=== PATIENT | female | born 1965 | race Caucasian/White ===

== ENCOUNTER 2018-08-22 02:09 | Emergency (ER) | payer OTHER ==
[~2018-08-22] VITALS: Ht 154.9 cm; Wt 70.3 kg
[2018-08-22 02:20] VITALS: Ht 154.9 cm; Wt 70.3 kg
[2018-08-22 02:50] LABS: CALCIUM 9.1 mg/dL (8.5-10.1); CARBON DIOXIDE 26.1 mmol/L (21-32); CHLORIDE SERUM 108 mmol/L (98-107); CREATININE SERUM 0.7 mg/dL (0.6-1.0); GFR1 > 60 mL/min; GLUCOSE SERUM 103 mg/dL (74-106); POTASSIUM SERUM 3.6 mmol/L (3.5-5.1); SODIUM SERUM 143 mmol/L (136-145)
[2018-08-22 02:53] LABS: BASOPHIL % 0.2 % (0-2); PLATELET COUNT 270 x10^3mcL (130-400); RED CELL DISTRIBUTION WIDTH 14.4 % (11.5-14.5)
[2018-08-22 02:55] LABS: ALBUMIN 3.3 g/dL (3.4-5.0); ALKALINE PHOSPHATASE 72 U/L (46-116); ALT/SGPT 78 U/L (14-59); AST/SGOT 40 U/L (15-37); BILIRUBIN TOTAL 0.72 mg/dL (0.20-1.00)
[2018-08-22 04:00] LABS: AMPHETAMINE QUAL UR NONE DETECTED (See below)
[2018-08-22 06:26] VITALS: BP 118/63
== END 2018-08-22 06:26 ==
LOC: ED 02:09
PROVIDERS: Emergency Medicine
DX: F32.3 Major depressive disorder, single episode, severe with psychotic features (principal); Z88.6 Allergy status to analgesic agent
CPT/HCPCS: 36415; G0480; J3490; Q0092